=== PATIENT | female | born 1950 | race Hispanic/Latino ===

== ENCOUNTER 2019-06-10 20:18 | Emergency (ER) | payer OTHER ==
[2019-06-10 21:32] LABS: Absolute Lymphocytes (CBC) 2.7 K/uL (0.7-4.9); Basophils % 0.8 % (0-1.3); Hematocrit 42.7 % (36.0-45.0); Lymphocytes % 35.1 % (15.3-44.8); MPV 7.9 fL (7.6-11.3); RBC Red Blood Cell Count 4.73 M/uL (3.86-4.86)
[2019-06-10] MEDS ORDERED: NA CHLORIDE 0.9% 1,000 ML ONE (21:38)
[2019-06-10] MEDS ORDERED: FAMOTIDINE 20 MG/2 ML VIAL IV ONE (21:38)
[2019-06-10] MEDS ORDERED: ONDANSETRON 4 MG/2 ML VIAL ONE (21:38)
[2019-06-10 21:50] LABS: Albumin 3.7 g/dL (3.4-5.0); Bilirubin Direct 0.1 mg/dL (0-0.2); Bilirubin Total 0.4 mg/dL (0.2-1.0); Potassium 3.3 mmol/L (3.5-5.1); Protein, Total 7.5 g/dL (6.4-8.2)
[2019-06-10 22:09] LABS: Magnesium 1.9 mg/dL (1.8-2.4); Troponin I < 0.02 ng/mL (0.0-0.045)
[2019-06-10 22:36] LABS: Urine Blood NEGATIVE (NEG); Urine Glucose NEGATIVE (NEG); Urine Protein NEGATIVE (NEG); Urine Specific Gravity >1.030 (1.005-1.030); Urine pH 5.5 (5.0-7.0)
[2019-06-10 22:37] LABS: Urine Bacteria <20 /HPF (<20); Urine Culture Reflex Order NOT NEEDED; Urine RBC NONE SEEN /HPF (NONE SEEN)
--- NOTE | 2019-06-10 23:07 | RAD REPORT ---
EXAM DESCRIPTION: [place] Single View06/10/2019 9:57 pm CLINICAL HISTORY: Chest pain COMPARISON: none FINDINGS: The lungs appear clear of acute infiltrate. The heart is normal size IMPRESSION: No acute abnormalities displayed
[2019-06-11] MEDS ORDERED: MECLIZINE HCL 12.5 MG TAB ONE (00:17)
[2019-06-11] MEDS ORDERED: POTASSIUM 25 MEQ EFFERV TAB ONE (00:26)
--- NOTE | 2019-06-11 00:34 | EDPHYS ---
Physician Documentation [facility] Name: Chelo Rebolledo Age: 69 yrs Sex: Female : 1950 Arrival Date: 06/10/2019 Time: 20:18 Bed 19 Private MD: ED Physician Jerry Erickson HPI: 06/10 21:30 This 69 yrs old Female presents to ER via Wheelchair with complaints of cp Dizziness. 21:30 The patient presents with dizziness, lightheadedness. cp 21:30 Onset: The symptoms/episode began/occurred gradually. cp 21:30 Associated signs and symptoms: Pertinent positives: abdominal pain, nausea, radiating cp pain to back, Pertinent negatives: chest pain, focal weakness, headache, syncope, vomiting. Severity of symptoms: in the emergency department the symptoms are unchanged despite home interventions. Patient's baseline: Neuro: alert and fully oriented, Motor: no deficits, Ambulation: walks without assistance, Speech: normal. Historical: - Allergies: 20:45 No Known Allergies; fc - Home Meds: 20:45 gemfibrozil 600 mg Oral tab 1 tab nightly [Active]; metoprolol tartrate 25 mg oral tab fc 1 tab once daily [Active]; allopurinol 300 mg Oral tab 1 tab once daily [Active]; losartan 50 mg oral tab 1 tab once daily [Active]; pravastatin 10 mg oral tab 1 tab nightly [Active]; - PMHx: 20:45 Hypertension; Gout; Hyperlipidemia; fc - PSHx: 20:45 ; fc - Immunization history:: Last tetanus immunization: unknown, Flu vaccine status is unknown. - Social history:: Smoking status: Patient/guardian denies using tobacco, Patient/guardian denies using alcohol, street drugs. - Ebola Screening: : Patient negative for fever greater than or equal to 101.5 degrees Fahrenheit, and additional compatible Ebola Virus Disease symptoms Patient denies exposure to infectious person Patient denies travel to an Ebola-affected area in the 21 days before illness onset. ROS: 21:40 Constitutional: Negative for body aches, chills, fever, poor PO intake. cp 21:40 Eyes: Negative for injury, pain, redness, and discharge. cp 21:40 ENT: Negative for drainage from ear(s), ear pain, sore throat, difficulty swallowing, cp difficulty handling secretions. 21:40 Cardiovascular: Negative for chest pain, edema, palpitations. 21:40 Respiratory: Negative for cough, shortness of breath, wheezing. 21:40 Abdomen/GI: Positive for abdominal pain, nausea, Negative for vomiting, diarrhea, constipation, anorexia, black/tarry stool, rectal bleeding. 21:40 Back: Positive for radiated pain. 21:40 Skin: Negative for cellulitis, rash. 21:40 Neuro: Positive for dizziness, Negative for altered mental status, headache, numbness, speech changes, syncope, weakness. 21:40 All other systems are negative. Exam: 20:55 ECG was reviewed by the Attending Physician. cp 21:45 Constitutional: The patient appears in no acute distress, alert, awake, cp non-diaphoretic, non-toxic, well developed, well nourished. 21:45 Head/Face: Normocephalic, atraumatic. cp 21:45 Eyes: Pupils equal round and reactive to light, extra-ocular motions intact. Lids and cp lashes normal. Conjunctiva and sclera are non-icteric and not injected. Cornea within normal limits. Periorbital areas with no swelling, redness, or edema. ENT: Nares patent. No nasal discharge, no septal abnormalities noted. Tympanic membranes are normal and external auditory canals are clear. Oropharynx with no redness, swelling, or masses, exudates, or evidence of obstruction, uvula midline. Mucous membranes moist. Chest/axilla: Normal chest wall appearance and motion. Nontender with no deformity. No lesions are appreciated. 21:45 Cardiovascular: Rate: normal, Rhythm: regular, Heart sounds: murmur, not appreciated, Edema: is not appreciated, JVD: is not appreciated. 21:45 Respiratory: the patient does not display signs of respiratory distress, Respirations: normal, no use of accessory muscles, no retractions, no splinting, no tachypnea, labored breathing, is not present, Breath sounds: are clear throughout, no decreased breath sounds, no stridor, no wheezing. 21:45 Abdomen/GI: Inspection: abdomen appears normal, Bowel sounds: active, all quadrants, Palpation: abdomen is soft and non-tender, in all quadrants, rebound tenderness, is not appreciated, voluntary guarding, is not appreciated, involuntary guarding, is not appreciated. 21:45 Skin: cellulitis, is not appreciated, no rash present. cp 21:45 Neuro: Orientation: to person, place \T\ time. Mentation: is normal, Cerebellar function: is grossly normal, Motor: moves all fours, strength is normal, Sensation: is normal. Vital Signs: 20:38 BP 157 / 66; Pulse 84; Resp 20; Temp 98.6(O); Pulse Ox 97% on R/A; Weight 63.5 kg (R); fc Height 5 ft. 0 in. (152.40 cm) (R); Pain 3/10; 23:14 BP 149 / 80; Pulse 74; Resp 18; Pulse Ox 100% on R/A; mg2 06/11 00:02 BP 133 / 66; Pulse 75; Resp 18; Pulse Ox 97% on R/A; mg2 00:51 BP 132 / 78; Pulse 75; Resp 18; Temp 98; Pulse Ox 100% on R/A; Pain 0/10; mg2 06/10 20:38 Body Mass Index 27.34 (63.50 kg, 152.40 cm) fc MDM: 06/10 21:20 Patient medically screened. cp 22:00 Differential diagnosis: cardiac arrhythmia, CVA, generalized weakness, GI bleed, cp hypovolemia, idiopathic dizziness, TIA, vertigo. 06/11 00:32 Data reviewed: vital signs, nurses notes, lab test result(s), EKG, radiologic studies, cp CT scan, plain films. 00:32 Test interpretation: by ED physician or midlevel provider: ECG, plain radiologic cp studies, chest xray negative for infiltrates. Counseling: I had a detailed discussion with the patient and/or guardian regarding: the historical points, exam findings, and any diagnostic results supporting the discharge/admit diagnosis, lab results, radiology results, the need for outpatient follow up, a family practitioner, to return to the emergency department if symptoms worsen or persist or if there are any questions or concerns that arise at home. 06/10 21:05 Order name: Basic Metabolic Panel; Complete Time: 23:01 mg2 06/10 23: Interpretation: Normal except: NA 135; K 3.3; GLUC 172; GFR 56. cp 06/10 21:05 Order name: CBC with Diff; Complete Time: 23:01 mg2 06/10 21:05 Order name: Creatinine for Radiology; Complete Time: 23:01 mg2 06/10 21:05 Order name: Hepatic Function; Complete Time: 23:01 mg2 06/10 21:05 Order name: Lipase; Complete Time: 23:01 mg2 06/10 21:29 Order name: Magnesium; Complete Time: 23:01 cp 06/10 21:29 Order name: Urine Microscopic Only; Complete Time: 23:01 cp 06/10 21:29 Order name: Troponin I; Complete Time: 23:01 cp 06/10 21:29 Order name: XRAY Chest (1 view); Complete Time: 23:47 cp 06/10 23:47 Interpretation: Report review. cp 06/10 21:36 Order name: CT Head Brain wo Cont cp 06/10 21:36 Order name: CT Abd/Pelvis - IV Contrast Only cp 06/10 22:05 Order name: Urine Dipstick--Ancillary (enter results) em1 06/10 21:05 Order name: IV Saline Lock; Complete Time: 21:42 mg2 06/10 21:05 Order name: Labs collected and sent; Complete Time: 21:42 mg2 06/10 21:29 Order name: Urine Dipstick-Ancillary (obtain specimen); Complete Time: 21:42 cp 06/10 21:29 Order name: EKG; Complete Time: 21:30 cp 06/10 21:29 Order name: EKG - Nurse/Tech; Complete Time: 21:34 cp 06/11 00:15 Order name: Misc. Order: ambulate patient; Complete Time: 00:24 cp EC/04 20:55 Rate is 77 beats/min. Rhythm is regular. AR interval is normal. QRS interval is normal. cp QT interval is normal. Interpreted by me. Reviewed by me. Administered Medications: 21:51 Drug: NS 0.9% 500 ml Route: IV; Rate: bolus; Site: right forearm; mg2 06/11 00:04 Follow up: Response: No adverse reaction; IV Status: Completed infusion; IV Intake: mg2 500ml 06/10 21:51 Drug: Zofran 4 mg Route: IVP; Site: right forearm; mg2 06/11 00:04 Follow up: Response: No adverse reaction; Marked relief of symptoms mg2 06/10 21:51 Drug: Pepcid 20 mg Route: IVP; Site: right forearm; mg2 06/11 00:03 Follow up: Response: No adverse reaction; Marked relief of symptoms mg2 06/10 21:51 Drug: NS 0.9% 500 ml Route: IV; Rate: 100 ml/hr; Site: right forearm; mg2 06/11 00:31 Follow up: Response: No adverse reaction; IV Status: Order to discontinue infusion; IV mg2 Intake: 300ml 00:24 Drug: Meclizine 25 mg Route: PO; mg2 00:24 Follow up: Response: No adverse reaction; Medication administered at discharge. mg2 00:30 Drug: Potassium Effervescent Tablet 25 mEq Route: PO; mg2 00:30 Follow up: Response: No adverse reaction; Medication administered at discharge. mg2 Disposition: 06:05 Co-signature as Attending Physician, Jerry Ercikson MD. pkmarianela Disposition: 06/11/19 00:33 Discharged to Home. Impression: Dizziness and giddiness, Unspecified abdominal pain. - Condition is Stable. - Discharge Instructions: Abdominal Pain, Adult, Dizziness. - Prescriptions for Meclizine 25 mg Oral Tablet - take 1 tablet by ORAL route every 8 hours As needed; 30 tablet. Zofran 4 mg Oral Tablet - take 1 tablet by ORAL route every 12 hours As needed; 20 tablet. - Medication Reconciliation Form, Thank You Letter, Antibiotic Education, Prescription Opioid Use form. - Follow up: Geovanny Duffy MD; When: 2 - 3 days; Reason: abdominal pain. Follow up: Private Physician; When: 2 - 3 days; Reason: dizziness. - Problem is new. - Symptoms have improved. Signatures: Dispatcher [employer] EDIA Jerry Erickson MD MD pkl Sarah Beth Powers RN RN Darell Musa PA PA cp Gardose, Michele, RN RN mg2 Corrections: (The following items were deleted from the chart) 00:51 00:33 06/11/2019 00:33 Discharged to Home. Impression: Dizziness and giddiness; mg2 Unspecified abdominal pain. Condition is Stable. Forms are Medication Reconciliation Form, Thank You Letter, Antibiotic Education, Prescription Opioid Use. Follow up: Geovanny Duffy; When: 2 - 3 days; Reason: abdominal pain. Follow up: Private Physician; When: 2 - 3 days; Reason: dizziness. Problem is new. Symptoms have improved. cp
--- NOTE | 2019-06-11 00:34 | ER ---
Nurse's Notes [facility] Name: Chelo Rebolledo Age: 69 yrs Sex: Female : 1950 Arrival Date: 06/10/2019 Time: 20:18 Bed 19 Private MD: Diagnosis: Dizziness and giddiness;Unspecified abdominal pain Presentation: 06/10 20:38 Presenting complaint: Child states: that pt is having dizziness and is cold all the fc time. Pt is having pain to left upper abd that radiates to the back. Positive for nausea but no vomiting. Last BM this am. Pt not wanting to eat because she fells as if her stomach is bloating. Transition of care: patient was not received from another setting of care. Onset of symptoms was June 07, 2019. Risk Assessment: Do you want to hurt yourself or someone else? Patient reports no desire to harm self or others. Initial Sepsis Screen: Does the patient meet any 2 criteria? No. Patient's initial sepsis screen is negative. Does the patient have a suspected source of infection? No. Patient's initial sepsis screen is negative. Care prior to arrival: None. 20:38 Method Of Arrival: Wheelchair fc 20:38 Acuity: BONITA 3 fc Historical: - Allergies: 20:45 No Known Allergies; fc - Home Meds: 20:45 gemfibrozil 600 mg Oral tab 1 tab nightly [Active]; metoprolol tartrate 25 mg oral tab fc 1 tab once daily [Active]; allopurinol 300 mg Oral tab 1 tab once daily [Active]; losartan 50 mg oral tab 1 tab once daily [Active]; pravastatin 10 mg oral tab 1 tab nightly [Active]; - PMHx: 20:45 Hypertension; Gout; Hyperlipidemia; fc - PSHx: 20:45 ; fc - Immunization history:: Last tetanus immunization: unknown, Flu vaccine status is unknown. - Social history:: Smoking status: Patient/guardian denies using tobacco, Patient/guardian denies using alcohol, street drugs. - Ebola Screening: : Patient negative for fever greater than or equal to 101.5 degrees Fahrenheit, and additional compatible Ebola Virus Disease symptoms Patient denies exposure to infectious person Patient denies travel to an Ebola-affected area in the 21 days before illness onset. Screenin:48 Abuse screen: Denies threats or abuse. Denies injuries from another. Nutritional mg2 screening: No deficits noted. Tuberculosis screening: No symptoms or risk factors identified. Fall Risk IV access (20 points). Assessment: 22:48 General: Appears in no apparent distress. comfortable, Behavior is calm, cooperative. mg2 Pain: Complains of pain in abdomen Pain radiates to back Pain currently is 5 out of 10 on a pain scale. Quality of pain is described as aching, Pain began gradually, Is intermittent. Neuro: Level of Consciousness is awake, alert, obeys commands, Oriented to person, place, time, situation. Cardiovascular: Capillary refill < 3 seconds Patient's skin is warm and dry. Respiratory: Airway is patent Respiratory effort is even, unlabored, Respiratory pattern is regular, symmetrical. GI: Reports upper abdominal pain. : No signs and/or symptoms were reported regarding the genitourinary system. EENT: No signs and/or symptoms were reported regarding the EENT system. Derm: Skin is intact, is healthy with good turgor, Skin is pink, warm \T\ dry. normal. Musculoskeletal: Circulation, motion, and sensation intact. Capillary refill < 3 seconds. 06/11 00:03 Reassessment: Patient appears in no apparent distress at this time. Patient and/or mg2 family updated on plan of care and expected duration. Pain level reassessed. Patient is alert, oriented x 3, equal unlabored respirations, skin warm/dry/pink. Vital Signs: 06/10 20:38 BP 157 / 66; Pulse 84; Resp 20; Temp 98.6(O); Pulse Ox 97% on R/A; Weight 63.5 kg (R); fc Height 5 ft. 0 in. (152.40 cm) (R); Pain 3/10; 23:14 BP 149 / 80; Pulse 74; Resp 18; Pulse Ox 100% on R/A; mg2 06/11 00:02 BP 133 / 66; Pulse 75; Resp 18; Pulse Ox 97% on R/A; mg2 00:51 BP 132 / 78; Pulse 75; Resp 18; Temp 98; Pulse Ox 100% on R/A; Pain 0/10; mg2 06/10 20:38 Body Mass Index 27.34 (63.50 kg, 152.40 cm) ED Course: 06/10 20:18 Patient arrived in ED. ds1 20:38 Arm band placed on Patient placed in an exam room, on a stretcher. fc 20:40 Triage completed. fc 20:47 Ta Philippe, JETHRO is Primary Nurse. mg2 21:02 Darell Heard PA is PHCP. cp 21:02 Jerry Erickson MD is Attending Physician. cp 21:39 Radiology exam delayed due to lab results not completed at this time. (BUN/Creatinine). vm2 21:57 XRAY Chest (1 view) In Process Unspecified. EDMS 22:11 CT completed. Patient tolerated procedure well. Patient moved to CT via stretcher. eh Patient moved back from CT. 22:16 CT Head Brain wo Cont In Process Unspecified. EDMS 22:24 CT Abd/Pelvis - IV Contrast Only In Process Unspecified. EDMS 22:48 No provider procedures requiring assistance completed. Inserted saline lock: 20 gauge mg2 in right forearm, using aseptic technique. Blood collected. 22:50 Patient has correct armband on for positive identification. security monitor on. Pulse mg2 ox on. NIBP on. Door closed. Warm blanket given. 06/11 00:03 Assisted to bathroom. mg2 00:32 Geovanny Duffy MD is Referral Physician. cp 00:50 IV discontinued, intact, bleeding controlled, No redness/swelling at site. Pressure mg2 dressing applied. Administered Medications: 06/10 21:51 Drug: NS 0.9% 500 ml Route: IV; Rate: bolus; Site: right forearm; mg2 06/11 00:04 Follow up: Response: No adverse reaction; IV Status: Completed infusion; IV Intake: mg2 500ml 06/10 21:51 Drug: Zofran 4 mg Route: IVP; Site: right forearm; mg2 06/11 00:04 Follow up: Response: No adverse reaction; Marked relief of symptoms mg2 06/10 21:51 Drug: Pepcid 20 mg Route: IVP; Site: right forearm; mg2 06/11 00:03 Follow up: Response: No adverse reaction; Marked relief of symptoms mg2 06/10 21:51 Drug: NS 0.9% 500 ml Route: IV; Rate: 100 ml/hr; Site: right forearm; mg2 06/11 00:31 Follow up: Response: No adverse reaction; IV Status: Order to discontinue infusion; IV mg2 Intake: 300ml 00:24 Drug: Meclizine 25 mg Route: PO; mg2 00:24 Follow up: Response: No adverse reaction; Medication administered at discharge. mg2 00:30 Drug: Potassium Effervescent Tablet 25 mEq Route: PO; mg2 00:30 Follow up: Response: No adverse reaction; Medication administered at discharge. mg2 Intake: 00:04 IV: 500ml; Total: 500ml. mg2 00:31 IV: 300ml; Total: 800ml. mg2 Outcome: 00:33 Discharge ordered by . russ 00:51 Discharged to home ambulatory. mg2 00:51 Condition: stable 00:51 Discharge instructions given to patient, family, Instructed on discharge instructions, follow up and referral plans. medication usage, Demonstrated understanding of instructions, follow-up care, medications, Prescriptions given X 2. 00:51 Patient left the ED. mg2 Signatures: Dispatcher [employer] Chicho Paredes Felicia, RN RN Bridgette Tillman ds1 Darell Heard PA PA cp McGuire, Victoria 2 Ta Philippe RN RN mg2
[2019-06-11 02:01] VITALS: BP 132/78; TEMP 98; O2SAT 100
--- NOTE | 2019-06-11 10:46 | EKG ---
Test Date: 2019-06-10 Test Time: 20:51:56 [employer] Operator: DURAN MEASUREMENT RESULTS: Intervals: Rate: 77 CA: 150 QRSD: 68 QT: 388 QTc: 439 [place]: P: 50 CA: 150 QRS: 0 T: 33 INTERPRETIVE STATEMENTS: Normal sinus rhythm Septal infarct, age undetermined Abnormal ECG Compared to ECG 09/28/1994 12:01:00 Myocardial infarct finding now present Sinus tachycardia no longer present ST (T wave) deviation no longer present Electronically Signed On 06-11-19 10:46:05 CDT by Camilo eNwton
--- NOTE | 2019-06-14 14:03 | RAD REPORT ---
EXAM DESCRIPTION: CT - Head Brain Wo Cont - 06/11/2019 2:54 am CLINICAL HISTORY: DIZZINESS COMPARISON: None. TECHNIQUE: CT HEAD WITHOUT IV CONTRAST on 06/10/2019 9:36 PM CDT This exam was performed according to our departmental dose-optimization program, which includes autom ated exposure control, adjustment of the mA and/or kV according to patient size and/or use of iterati ve reconstruction technique. FINDINGS: There is no acute hemorrhage, mass effect or midline shift. Rodriguez-white differentiation is preserved. There is no hydrocephalus. There is no significant volume loss for age. There are mild pat jayda hypodensities within the periventricular and subcortical white matter, consistent with microangio pathic ischemic changes. The calvarium is intact. Orbits and globes are unremarkable. The paranasal sinuses are clear. Mastoid air cells are clear. IMPRESSION: No acute intracranial findings. Electronically signed by: Ramírez Last MD 06/10/2019 10:26 PM CDT Due to temporary technical issues with the PACS/Fluency reporting system, reports are being signed by the in house radiologist as a courtesy to ensure prompt reporting. The interpreting radiologist is f ully responsible for the content of the report.
--- NOTE | 2019-06-14 14:04 | RAD REPORT ---
EXAM DESCRIPTION: CT - Abdomen Pelvis W Contrast - 06/11/2019 2:53 am CLINICAL HISTORY: ABD PAIN COMPARISON: None. TECHNIQUE: CT ABDOMEN PELVIS WITH IV CONTRAST on 06/10/2019 9:36 PM CDT This exam was performed according to our departmental dose-optimization program, which includes autom ated exposure control, adjustment of the mA and/or kV according to patient size and/or use of iterati ve reconstruction technique. FINDINGS: Lower lungs are clear. Abdomen: The liver is normal in appearance. There is no biliary dilatation. Gallbladder is mildly thi ckened diffusely. The pancreas and spleen are normal in appearance. Adrenal glands are normal. Kidney s are mildly atrophic. Aorta is moderately atherosclerotic without aneurysm. There is no free air. There is no retroperitone al adenopathy. Pelvis: There is no bowel obstruction. Urinary bladder is unremarkable. There is no free fluid. Uteru s is normal in size appendix is normal. Skeleton: There are no acute osseous findings. No suspicious bony lesions. IMPRESSION: No acute inflammatory process. No renal or ureteral calculi. Electronically signed by: Ramírez Last MD 06/10/2019 10:32 PM CDT Due to temporary technical issues with the PACS/Fluency reporting system, reports are being signed by the in house radiologist as a courtesy to ensure prompt reporting. The interpreting radiologist is f ully responsible for the content of the report.
== END 2019-06-11 00:51 | disposition home or self-care (01) ==
LOC: ER 20:18
DX: R42 Dizziness and giddiness (principal); R10.9 Unspecified abdominal pain; I10 Essential (primary) hypertension; E78.5 Hyperlipidemia, unspecified; M10.9 Gout, unspecified
CPT/HCPCS: 96361; 93005; 85025; 80048; 36415; 83735; 80076; 84484; 83690; 70450; 74177; 71045; 96375; 96374; 99285; Q9967; J7030; J2405; 81003; 81015; J8597